=== PATIENT | male | born 1945 | race Hispanic/Latino ===

== ENCOUNTER 2020-01-04 09:24 | Day surgery (SDC) | payer OTHER ==
[~2020-01-04 09:24] MED LIST: SODIUM CHLORIDE 0.9% 1000 ML 1,000 ML IV SCH
[2020-01-04] MEDS ORDERED: propofoL 200 MG/20 ML VIAL IV ONE ×3 (10:38→11:00)
--- NOTE | 2020-01-04 11:23 | Procedure Note ---
Date of procedure: 01/04/20 Pre-op diagnosis: Weight Loss/ GERD/ Colon Polyp Screening Post-op diagnosis: other (Mild to Moderate Erosive Esophagitis/ Gastritis and Gastric Erosion/Solitaru,Small Descending colon Polyp/Melanosis Coli/ Minor, Internal Hemorrhoid/ Normal,Ileal Mucosa) Anesthesia: MAC Surgeon: ISHAN KELLEY Estimated blood loss: minimal Pathology: list Specimen disposition: to lab Condition: stable Disposition: same day (Treat with PPI and resume home medication but avoid aspirin and NSAID for 5 days. follow up in 1 to 2 weeks ([phone]).)
--- NOTE | 2020-01-04 11:33 | Operative Report ---
PROCEDURE: Colonoscopy with biopsy. INDICATIONS: This is a 74-year-old white male with an underlying history of diabetes mellitus type 2, hypertension, who also has been having some history of weight loss. He does give a family history of cancer. His father had some rare form of ear cancer. EGD done prior to the colonoscopy showed [id number] erosive esophagitis, gastric erosion and gastritis. Colonoscopy was done to make sure there was not any significant lower GI pathology present that would account for his weight loss. PROCEDURE: The procedure was done after getting informed consent with MAC anesthesia. Initial rectal exam was unremarkable. Instrument was passed through the rectum onto the cecum, which was identified with ileocecal valve and the appendiceal orifice. Visualization was fair to good. The terminal ileum was intubated, showed normal mucosa. Cecum, ascending colon, transverse colon showed normal mucosa. There were a solitary small possibly hyperplastic polyp noted in the descending colon that was removed by cold biopsy with minimal bleeding and the remaining part of the left colon showed normal mucosa and the rectum showed minor internal hemorrhoid on the retroverted view. 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 No complications associated with the procedure. ASSESSMENT: Colon polyp screening, history of weight loss, solitary small descending colon polyp which would not account for the patient's weight loss, minor internal hemorrhoid, melanosis coli. Normal ileal mucosa. PLAN: Again, there was minimal bleeding associated with the procedure. No complications associated with the procedure. The patient will be asked to avoid aspirin and aspirin-related products for the next few days. Otherwise, resume home medication. The patient will also be treated with PPI. TSH level and a T3, T4 level will be done as part of workup for the patient's weight loss and the patient will be asked to follow up in the office in 1-2 weeks' time. The procedure was done in the GI lab with assistance of the GI lab team, which included Jerrica BACA Terrell and with assistance of Anesthesia. JOB# [id number] BRAD/MAVERICK
--- NOTE | 2020-01-04 11:51 | Operative Report ---
PROCEDURE: Esophagogastroduodenoscopy with biopsy. INDICATIONS: The patient is a 74-year-old white male with an underlying history of diabetes mellitus and hypertension, who has lately also been losing weight and has also been complaining of some GERD symptoms. EGD was done to make sure there was not any significant upper GI pathology. DESCRIPTION OF PROCEDURE: Procedure was done after getting informed consent with MAC anesthesia. Instrument was passed through the hypopharynx into the esophagus, which showed some [id number] erosive esophagitis. Stomach showed antral erosion and gastritis and pylorus was patent. Duodenum in the first and second portion appeared normal. There was biopsy done from the gastric antrum, the gastric body and angular incisura to rule out for H. pylori and atrophic gastritis. Additional biopsy was done from the distal esophagus to assess for the severity of the erosive esophagitis. There was minimal bleeding associated with the procedure. No complications associated with the procedure. ASSESSMENT: History of weight loss, gastroesophageal reflux disease symptoms, mild to moderate erosive esophagitis, gastric erosion involving the antrum, gastritis. PLAN: To treat the patient with PPI, have the patient avoid aspirin and aspirin-related products for the next 5 days and to do a colonoscopy for further assessment of his weight loss and also as part of colon polyp screening. The procedure was done in the GI lab with assistance of the GI lab team, which included Jerrica BACA and Martin mayesr and with assistance of anesthesia. JOB# [id number] BRAD/MAVERICK
[2020-01-04 11:57] VITALS: BP 112/67
[2020-01-04] MEDS ORDERED: SODIUM CHLORIDE 0.9% 1000 ML 1,000 ML ONE (13:41)
[2020-01-04] MEDS ORDERED: LIDOCAINE MPF (2%) 20 MG/1 ML VIAL 5 ML ONE (14:00)
--- NOTE | 2020-01-04 14:39 | Anesthesia Day of Surgery ---
Anesthesia Day of Surgery - Day of Surgery Patient Examined: Yes Patient H&P Reviewed: Yes Patient is NPO: Yes
--- NOTE | 2020-01-04 14:39 | Anesthesia Consultation ---
Anesthesia Consult and Med Hx Date of service: 01/04/20 - Airway Anesthetic Teeth Evaluation: Dentures ROM Head & Neck: Adequate Mental/Hyoid Distance: Adequate Mallampati Class: Class II Intubation Access Assessment: Probably Good - Pulmonary Exam CTA: Yes - Cardiac Exam Cardiac Exam: RRR - Pre-Operative Health Status ASA Pre-Surgery Classification: ASA3 Proposed Anesthetic Plan: MAC - Pulmonary Hx Smoking: Yes (former smoker) Hx Asthma: Yes Hx Respiratory Symptoms: No Hx Sleep Apnea: Yes (compliant with CPAP) - Cardiovascular System Hx Hypertension: Yes Hx Heart Attack/AMI: No Hx Percutaneous Transluminal Coronary Angioplasty (PTCA): No Hx Cardia Arrhythmia: Yes (afib; took diltiazem this morning) Hx Pacemaker: No Hx Internal Defibrillator: No - Central Nervous System CVA: No - Gastrointestinal Hx Gastroesophageal Reflux Disease: No - Endocrine Hx Renal Disease: No Hx Liver Disease: No Hx Insulin Dependent Diabetes: Yes Hx Thyroid Disease: No - Other Systems Hx Obesity: No
--- NOTE | 2020-01-04 14:39 | Post Anesthesia Evaluation ---
- Post Anesthesia Evaluation Patient Participated: Yes Airway Patent: Yes Stable Respiratory Function: Yes Nausea/Vomiting: No Temp > 96.8F: Yes Pain Manageable: Yes Adequeate Hydration: Yes Anesthesia Complications: No
== END 2020-01-04 12:00 | disposition home or self-care (01) ==
LOC: GIO 09:24
DX: K21.0 Gastro-esophageal reflux disease with esophagitis (principal); R63.4 Abnormal weight loss; K63.5 Polyp of colon; K29.70 Gastritis, unspecified, without bleeding; K64.8 Other hemorrhoids; K63.89 Other specified diseases of intestine; E11.9 Type 2 diabetes mellitus without complications; I10 Essential (primary) hypertension; E11.39 Type 2 diabetes mellitus with other diabetic ophthalmic complication; I42.9 Cardiomyopathy, unspecified; E78.00 Pure hypercholesterolemia, unspecified; J45.909 Unspecified asthma, uncomplicated; G47.30 Sleep apnea, unspecified; H40.9 Unspecified glaucoma; Z98.890 Other specified postprocedural states; Z91.041 Radiographic dye allergy status; Z79.899 Other long term (current) drug therapy; Z79.84 Long term (current) use of oral hypoglycemic drugs; Z80.0 Family history of malignant neoplasm of digestive organs; Z88.8 Allergy status to other drugs, medicaments and biological substances
CPT/HCPCS: 36415; 43239; 45380; 82962; 84436; 84443; 84480; 88305; 88342; J2704; J7030